=== PATIENT | female | born 1965 | race Caucasian/White ===

== ENCOUNTER 2019-10-25 13:32 | Outpatient (CLI) | payer OTHER ==
--- NOTE | 2019-10-25 13:47 | RAD ---
EXAM: Chest 2 views: HISTORY: Cough and wheezing COMPARISON: 05/09/2015 FINDINGS: There is a normal-sized cardiomediastinal silhouette. There is no evidence of consolidation, mass, or pleural effusion. The bones are unremarkable. IMPRESSION: No evidence of acute cardiopulmonary disease
== END 2019-10-25 13:33 | disposition home or self-care (01) ==
LOC: SCSRAD 13:32
PROVIDERS: ATTEND Family Medicine
DX: R07.89 Other chest pain (principal)
CPT/HCPCS: 71046